=== PATIENT | male | born 1955 | race Caucasian/White ===

== ENCOUNTER → 2024-05-01 08:22 | Outpatient (REF) | payer MEDICARE, OTHER, SELFPAY | LOC: RCS 08:22 | PROVIDERS: ATTENDING PHYSICIAN Internal Medicine Cardiovascular Disease; FAMILY PHYSICIAN Internal Medicine | DX: I10 Essential (primary) hypertension (principal) | CPT/HCPCS: 93306 ==

== ENCOUNTER 2025-01-25 21:03 | Emergency (ER) | payer MEDICARE, OTHER, SELFPAY ==
[2025-01-25 21:08] VITALS: BP 168/75
[2025-01-25 21:47] VITALS: BMI 33.4
--- NOTE | 2025-01-25 22:18 | ED.GENMED ---
History of Present Illness
General
Chief Complaint: Musculo-Skeletal Complaint
Source: patient
Exam Limitations: none
Time Seen by Provider: 01/25/25 22:03
Nursing documentation reviewed up to this point in time: agreed with
History of Present Illness
History of Present Illness:
Pleasant 69-year-old male presents with left knee pain that has been present for the last 4 to 5 weeks. He states that he had right-sided total knee replacement performed by Dr. Stover at the end of November. Shortly thereafter he started to develop
pain on the left. He states that has been progressively worsening. He has been to Dr. Gerard to did not feel that there was anything that could be done about the pain at the time. Tonight he came in because of increased swelling, pain and
swelling of the ankle. Denies fever, chills, nausea or vomiting. Reports no chest pain or shortness of breath.
Past History
Past History
ED Past Medical History: None
ED Past Surgical History: None
Social History
Tobacco: Non-smoker
Alcohol: None
Drug: None
Living: with family
Review of Systems
Review of Systems
Allergies reviewed?: Yes
All Other Systems: ROS reviewed and negative except as documented in HPI and ROS
Constitutional: Reports no symptoms
EENT: Reports no symptoms
Respiratory: Reports no symptoms
Cardiac: Reports no symptoms
ABD/GI: Reports no symptoms
: Reports no symptoms
Musculoskeletal: Reports joint pain, muscle pain, muscle stiffness and edema (Mild edema on the leg calf and ankle)
Skin: Reports no symptoms
Neurological: Reports no symptoms
Endocrine: Reports no symptoms
Hematologic/Lymphatic: Reports no symptoms
Psychiatric: Reports no symptoms
Phy Exam
General Physical Exam
General Presentation: well appearing and no apparent distress
General Skin: warm and dry
General Habitus: normal
General Mental: alert
General Hydration: appears well hydrated
ENT Exam
ENT Exam: EOMI, pharynx normal, neck supple and normocephalic
Eye Exam
Eye Exam: PERRL, cornea clear and conjunctiva normal
Cardiovascular Exam
Cardiovascular Exam: regular rate/rhythm, no edema, no murmur and normal peripheral pulses
Pulmonary Exam
Pulmonary Exam: lungs clear, no respiratory distress, no rales, no crackles, no rhonchi, no stridor, no wheezing and no cough
Gastrointestinal Exam
Gastrointestinal Exam: normal bowel sounds, non tender, soft, no organomegaly, no pulsatile mass and non distended
Neurological Exam
Neurological Exam: alert, oriented x3, no motor deficits and speech normal
Musculoskeletal Exam
Musculoskeletal Exam: edema, joint swelling and neuro vasc intact
Skin Exam
Skin Exam: normal color, warm/dry, no rash, no petechia and other (Surgical scar on the right knee. Well healed)
Psychiatric Exam
Psychiatric Exam: normal mood/affect
Course
Orders/Labs/Results
Orders:
Orders
01/25/25 21:09
Knee, Left 4 or More Views [CR Knee - Left 4 Or More View*] Urgent
Comment:
Reason For Exam: pain
01/25/25 22:17
US Legs, Left [US Periph Venous LOWER Ext LT] Urgent
Comment:
Reason For Exam: left knee pain, swelling behind knee and ankle
01/25/25 22:18
Ibuprofen [Motrin] 600 mg PO NOW STA
Vital Signs
Initial and Last Documented VS:
Initial Vital Signs
Temp Pulse Resp BP Pulse Ox
98.7 F 99 16 168/75 98
01/25/25 21:08 01/25/25 21:08 01/25/25 21:08 01/25/25 21:08 01/25/25 21:08
Last Documented Vital Signs
Temp Pulse Resp BP Pulse Ox
98.7 F 99 16 168/75 98
01/25/25 21:08 01/25/25 21:08 01/25/25 21:08 01/25/25 21:08 01/25/25 21:08
*Pulse Oximetry
Patient hypoxic: no
*Critical Care Note
Total Time (30-74mins, 75-104mins- exclusive of procedures): 42 (Critical care statement: A total of 42 minutes of critical care time was provided for this patient. This time is separate from time utilized to perform the aforementioned documented
procedures. Aggregate critical care time includes only time during which I was engaged in work directl)
Update Note
Update Note:
Lopez's cyst behind the left knee according to ultrasound.
X-ray negative
Subacute pain.
Knee is stable on exam.
Patient to follow-up with Dr. Stover.
ED Attending Note
-
Portions of this chart may have been created with voice recognition software.� Occasional wrong word or��sound alike� substitutions may have occurred due to the inherent limitations of voice recognition software.
Discharge Plan
Departure
Patient Disposition: Home (Routine Discharge)
Date of Disposition: 01/25/25
Time of Disposition: 23:24
Patient with high blood pressure during this ER visit?: Yes
Condition: Good
Discharge Problem:
Lopez's cyst of knee
Instructions: Lopez's Cyst (DC), Chronic Knee Pain (DC), BLOOD PRESSURE
Prescriptions:
New
diclofenac sodium 75 mg tablet,delayed release (DR/EC)
75 mg PO BID Qty: 10 0RF
No Action
ibuprofen 600 mg tablet
600 mg PO TID PRN (Reason: pain) Qty: 14 0RF
Referrals:
Perez Gerard MD [Active] -
Brayden Stover MD [Active] -
Amanuel Ramirez MD [Family Provider] -
Activity Restrictions/Additional Instructions:
Thank You for choosing [facility].
It was a pleasure meeting you and taking part in your care. We hope for your continued healing and wellness.
Please read discharge instructions in their entirety. However, they are for general education and may not describe your exact diagnosis at discharge. Information on your ER visit and medical conditions were discussed with you along with appropriate
follow up information...
If indicated, please take your medications as instructed and indicated on discharge paperwork.
Please schedule a follow up appointment as directed. Call to schedule an appointment
Please return to the emergency department with ANY change in, persisting, or worsening of symptoms. If any of your symptoms do not improve, or persist, or become more severe within 6-12 hours, please return to the emergency department for further
care.
Please return to the emergency department if you develop a headache, neck pain/stiffness, fever greater than 100.4F, chest pain, shortness of breath, persistent nausea, vomiting, slurred speech, difficulty walking, numbness/tingling, weakness, signs
of infection or any other symptoms that are worrisome to you.
If you have any questions or concerns please do not hesitate to call the Hospital at or E-mail me directly at [email or web address]
Interventions
Interventions:
*Risk Screen - Suicide Last Done: 01/25/25 21:08
*General Assessment Last Done: 01/25/25 21:08
*Neglect/Abuse Screening Last Done: 01/25/25 21:08
*ED- Fall Risk Assessment Last Done: 01/25/25 21:36
*ED COVID-19 Vaccine History Last Done: 01/25/25 21:08
ED-Musculoskeletal Assessment Last Done: 01/25/25 21:36
Discharge Date and Time
Print Language: FILIPINO
[2025-01-25] MEDS: MOTRIN 600 MG PO (22:57)
[2025-01-26] VITALS: BP 141/86
== END 2025-01-26 | disposition home or self-care (01) ==
LOC: EMR 21:03
PROVIDERS: EMERGENCY PHYSICIAN Student in an Organized Health Care Education/Training Program; FAMILY PHYSICIAN Internal Medicine
DX: M71.22 Synovial cyst of popliteal space [Baker], left knee (principal); R03.0 Elevated blood-pressure reading, without diagnosis of hypertension; Z96.651 Presence of right artificial knee joint
CPT/HCPCS: 99285; 73564; 93971

== ENCOUNTER → 2025-03-14 13:17 | Outpatient (REF) | payer MEDICARE, OTHER, SELFPAY | LOC: RAD 13:17 | PROVIDERS: ATTENDING PHYSICIAN Physician Assistant Medical; FAMILY PHYSICIAN Internal Medicine | DX: M79.662 Pain in left lower leg (principal) | CPT/HCPCS: 93971 ==

== ENCOUNTER → 2025-03-16 06:55 | Outpatient (REF) | payer MEDICARE, OTHER, SELFPAY ==
[2025-03-16 09:00] LABS: Hematocrit 41.1 % (39.0-52.0); Hemoglobin 13.7 g/dL (13.0-18.0); Mean Corp Hgb Conc. 33.3 g/dL (33.0-37.0); Mean Corpuscular Volume 94.3 fL (80.0-94.0); Nucleated Red Blood Cells % 0 % (-); Platelet Count 262 10^3/uL (130-400); Red Cell Dist. Width 12.6 % (11.5-14.5)
[2025-03-16 09:23] LABS: Blood Urea Nitrogen 18 mg/dl (9-20); Calcium 9.3 mg/dl (8.4-10.2); Carbon Dioxide 25 mmol/L (22-30); Chloride 107 mmol/L (98-107); Glucose 116 mg/dl (70-99); Potassium 4.5 mmol/L (3.5-5.1); Sodium 141 mmol/L (135-145); eGFR > 60.00
== END ==
LOC: SDSPAT 06:55
PROVIDERS: ATTENDING PHYSICIAN Orthopaedic Surgery; FAMILY PHYSICIAN Internal Medicine
DX: Z01.818 Encounter for other preprocedural examination (principal)
CPT/HCPCS: 36415; 80048; 85025; 93005

== ENCOUNTER 2025-03-22 06:24 | Day surgery (SDC) | payer MEDICARE, OTHER, SELFPAY ==
[2025-03-16 13:51] VITALS: BMI 33.4
[2025-03-22] VITALS (10 sets, daily range): BP systolic 121–146; BP diastolic 60–80; BMI 33.4
[2025-03-22] MEDS: CELEBREX 200 MG PO (10:12)
[2025-03-22] MEDS: TYLENOL 1000 MG PO (10:12)
[2025-03-22] MEDS: NORMOSOL-R/PLASMALYTE-A 1000 IV (10:13)
== END 2025-03-22 13:45 | disposition home or self-care (01) ==
LOC: SDS 06:24
PROVIDERS: ATTENDING PHYSICIAN Orthopaedic Surgery
DX: S83.232A Complex tear of medial meniscus, current injury, left knee, initial encounter (principal); X58.XXXA Exposure to other specified factors, initial encounter
CPT/HCPCS: 29881